=== PATIENT | female | born 1990 | race African-American/Black ===

== ENCOUNTER 2022-09-04 10:33 | Outpatient (CLI) | payer BC, SELFPAY ==
[2022-09-08 16:55] LABS: Testosterone Total 103 ng/dL (2-45)
[2022-09-10 20:19] LABS: Estradiol, Ultrasensitive 54 pg/mL
[2022-09-10 20:47] LABS: FSH 5.6 mIU/mL (***); Progesterone 0.4 ng/mL (***)
== END 2022-09-04 10:34 | disposition home or self-care (01) ==
PROVIDERS: Visit Provider Student in an Organized Health Care Education/Training Program
DX: N92.6 Irregular menstruation, unspecified (principal)
CPT/HCPCS: 36415; 82670; 83001; 84144; 84403; 84443